=== PATIENT | male | born 1975 | race Asian ===

== ENCOUNTER → 2018-09-12 | Outpatient (CLI) | payer OTHER ==
--- NOTE | 2018-09-14 08:41 | SLEEPCENT ---
DATE OF PROCEDURE: 09/12/2018 ORDERED BY: Demetrio Law MD Nocturnal polysomnography was performed for titration of pressure therapy in this patient with obstructive sleep apnea syndrome with persistent symptoms despite use of an auto titrating device. For testing the patient was fit with a ResMed Mirage FX nasal mask of standard size; 4 cm of water pressure were initially applied to the circuit and the lights were extinguished. 7 hours and 36 minutes of data were reviewed. There were 423 minutes of sleep identified. Sleep latency was normal at 6 minutes. Rapid eye movement (REM) latency normal at 79 minutes. Sleep architecture was good with 3 REM cycles. Overall sleep efficiency was 93.8%. The electrocardiogram showed a sinus rhythm with a wandering baseline average heart rate 54 beats per minute. Rate ranged 40-76 beats per minute. Electroencephalogram (EEG) showed essentially normal waveforms for awake and sleep. Persistent respiratory events prompted an increase in CPAP from 4 to 6 with which the patient slept through REM without significant respiratory event or oxygen desaturation. Central events were noted late in the study without significant associated oxygen desaturation. There was minimal activity in the limb leads and remaining measures of sleep physiology were normal. IMPRESSION: Obstructive sleep apnea syndrome (G47.33). RECOMMENDATIONS: Nightly use of pressure therapy 6 cm of water.
== END ==
LOC: M SLEEP 19:41
PROVIDERS: ATTEND Internal Medicine
DX: G47.33 Obstructive sleep apnea (adult) (pediatric) (principal)

== ENCOUNTER → 2019-05-20 | Outpatient (CLI) | payer OTHER ==
--- NOTE | 2019-05-20 20:19 | REP ---
Clinical: Back pain. Technique: AP, lateral, coned-down views of the lumbosacral spine. Findings: Alignment and lordosis maintained. Vertebral bodies are intact. No acute fracture / compression injury or subluxation. No significant degenerative changes are appreciated. Disc spaces are relatively well maintained and normal. Impression: Normal age appropriate lumbosacral spine radiographs. Electronically Signed by Lul Curry MD 05/20/2019 08:11 P
== END ==
LOC: M RAD 16:23
PROVIDERS: ATTEND Internal Medicine
DX: M54.5 Low back pain (principal)

== ENCOUNTER → 2021-11-07 | Outpatient (CLI) | payer OTHER ==
[~2021-11-07] MED LIST: B-12100010 PO; FISH1000 PO; LOSA25TA13 PO; VITMTA PO
== END ==
LOC: M LABSMTC 08:55
PROVIDERS: ATTEND Anesthesiology
DX: Z01.812 Encounter for preprocedural laboratory examination (principal); Z20.822 Contact with and (suspected) exposure to COVID-19

== ENCOUNTER 2021-11-10 06:07 | Day surgery (SDC) | payer OTHER ==
[~2021-11-10] VITALS: Ht 165.1 cm; Wt 55.8 kg
[2021-11-10] MEDS: LR 1,000 ML IV SCH ×2 (06:46→06:56)
[2021-11-10] MEDS ORDERED: fentaNYL 100 MCG/2 ML INJECTION As Ordered ONE (07:22)
[2021-11-10] MEDS ORDERED: MIDAZOLAM INJ 2MG/2ML VIAL (J2250 PER 1MG) As Ordered ONE (07:22)
[2021-11-10] MEDS ORDERED: propofoL 200 MG/20 ML VIAL As Ordered ONE (07:22)
[2021-11-10] MEDS ORDERED: LIDOCAINE 2% 100MG/5ML SDV (FOR ANES.) As Ordered ONE (07:22)
[2021-11-10] MEDS ORDERED: ONDANSETRON 4MG 2ML VIAL As Ordered ONE (07:36)
[2021-11-10] MEDS ORDERED: dexameTHASONE 4 MG/ML 1ML VIAL (J1100 PER 1MG) As Ordered ONE (07:36)
[2021-11-10] MEDS ORDERED: ROCURONIUM BROMIDE 50 MG/5 ML VIAL As Ordered ONE (07:36)
[2021-11-10] MEDS ORDERED: ACETAMINOPHEN 1000MG 100ML IV BTL (OFIRMEV) (J0131 PER 10MG) As Ordered ONE (08:06)
[2021-11-10] MEDS ORDERED: SUGAMMADEX SODIUM 500 MG/5 ML VIAL (BRIDION) As Ordered ONE (08:06)
[2021-11-10] MEDS ORDERED: KETOROLAC 60MG 2ML VIAL As Ordered ONE (08:44)
[2021-11-10] MEDS ORDERED: METOCLOPRAMIDE INJ 10MG/2ML VIAL (J2765 PER 1) IV PRN (08:45)
[2021-11-10] MEDS ORDERED: MEPERIDINE INJ 25 MG/ML VIAL (J2175) IV PRN (08:45)
[2021-11-10] MEDS ORDERED: HYDROMORPHONE HCL 0.5 MG/ 0.5 ML SYRINGE (J1170 PER 1) IV PRN (08:45)
[2021-11-10] MEDS ORDERED: LR 1,000 ML IV SCH (08:45)
[2021-11-10] MEDS ORDERED: fentaNYL 100 MCG/2 ML INJECTION IV PRN (08:45)
[2021-11-10] MEDS ORDERED: ONDANSETRON 4MG 2ML VIAL IV PRN (08:45)
[2021-11-10] MEDS ORDERED: oxyCODONE 5MG TAB PO PRN (08:45)
[2021-11-10] MEDS ORDERED: diphenhydrAMINE 50MG/ML VIAL (J1200) IV PRN (08:45)
[2021-11-10 10:15] VITALS: BP 155/79
== END 2021-11-10 10:22 | disposition home or self-care (01) ==
LOC: M OPP 06:07
PROVIDERS: ATTEND Surgery
DX: K60.3 Anal fistula (principal); Z79.02 Long term (current) use of antithrombotics/antiplatelets; Z79.84 Long term (current) use of oral hypoglycemic drugs; Z79.891 Long term (current) use of opiate analgesic; Z79.899 Other long term (current) drug therapy
CPT/HCPCS: 46270; J0131; J1100; J1885; J2250; J2405; J3010